=== PATIENT | female | born 1980 | race Caucasian/White ===

== ENCOUNTER 2020-01-01 13:02 | Emergency (ER) | payer SELFPAY ==
[~2020-01-01] VITALS: Ht 157.5 cm; Wt 95.5 kg
[2020-01-01 13:11] VITALS: BP 138/89; TEMP 97.7
[2020-01-01] MEDS ORDERED: NORCO 325 MG-51 TAB PO (13:35)
[2020-01-01] MEDS ORDERED: CLEOCIN HCL300 MG PO (13:35)
[2020-01-01 13:41] VITALS: PULSE 98
== END 2020-01-01 13:41 | disposition home or self-care (01) ==
LOC: COL.ER 13:02
DX: K04.7 Periapical abscess without sinus (principal); K02.9 Dental caries, unspecified; F17.210 Nicotine dependence, cigarettes, uncomplicated; Z87.81 Personal history of (healed) traumatic fracture